=== PATIENT | male | born 1945 | race Caucasian/White ===

== ENCOUNTER 2025-08-21 13:51 | Outpatient (CLI) | payer MEDICARE, BC | END 2025-08-21 13:52 | disposition home or self-care (01) | LOC: CSHCT 13:51 | PROVIDERS: ATTEND Family Medicine Sports Medicine | DX: R31.0 Gross hematuria (principal); N20.0 Calculus of kidney; K80.20 Calculus of gallbladder without cholecystitis without obstruction; N42.89 Other specified disorders of prostate | CPT/HCPCS: 74176 ==